=== PATIENT | male | born 1955 | race Caucasian/White ===

== ENCOUNTER 2017-01-03 14:51 | Inpatient (IN) | payer OTHER, MEDICAID ==
[~2017-01-03] VITALS: Ht 193 cm; Wt 81.7 kg
[~2017-01-03 14:51] MED LIST: ALENDRONATE SOD70 M1 PO; ALENDRONATE SOD70 MG PO; AMBIEN10 M1 PO; ASPI-COR81 M1 PO; ASPIR LOW81 MG PO; ATORVASTATIN CA40 M1 PO; BACLOF PO; BACLOFEN20 MG PO; BACTROBAN OINT22 GM PO; CAPOTEN25 MG PO; CAPOTEN50 MG PO; CARDURA1 M1 PO; CARDURA1 MG PO; CEFTRIAXONE IV; CENTRUM 240 ML240 ML PO; CENTRUM1 TAB PO; CIPRO500 MG PO; CLOTRIMAZOLE AN1 CRE T; COLACE100 MG PO; CRANBERRY1 CAP PO; CYCLOBENZAPRINE10 MG PO; Ciprofloxacin500 MG PO; DILTIAZEM HCL240 M1 PO; DITROPAN XL15 MG PO; DITROPAN5 MG PO; DULCOLAX5 MG PO; ENEMEEZ MINI E283 MG R; FIBER0.52 GM PO; FISH OIL 1,0001 EAC1 PO; FLUCONAZOLE100 MG PO; FOSAMAX70 MG PO; HYDR25T; HYDR25T PO; HYDRODIURIL25 MG PO; IRON PO; LOMOTIL 0.025 M1 TA1 PO; LOPRESSOR100 MG PO; LOTRISONE 0.05%1 CRE TP; MACRODANTIN100 M1 PO; MACRODANTIN100 MG PO; METAMUCIL1 PDR PO; METHENAMINE HIPP1 G1 PO; METOPROLOL SUCC25 M2 PO; MIRALAX17 GM/DOSE PO; NATALIZUMAB; NEURONTIN300 MG PO; NITRO TRANS0.4 MG/HR TD; NITRO-DUR1 EAC3 T; NITROFURANTOIN100 MG PO; NITROSTAT0.4 MG TD; PIPERACIL-TA3.375 GM IV; PYRIDIUM200 MG PO; REQUIP0.25 MG PO; REQUIP0.5 MG PO; RITE AID CRANB425 MG PO; ROCEPHIN1 GM IJ; SENOKOT8.6 MG PO; SEPTRA DS 800 M1 TAB PO; TUCKS T; TYSABRI20 MG/ML IV; TYSABRI300 MG/15 IV; UREX1 GM PO; URISED1 TA1 PO; URISPAS100 MG PO; VIBRAMYCIN100 MG PO; VICO75300 PO; VICODIN ES 7.51 EACH PO; VICODIN ES 7501 TA1 PO; VITAMIN D-32000 UNI1 PO; VITAMIN E1000 UNI1 PO; ZOCOR40 MG PO; ZOLOFT50 MG PO; [UNRECOGNIZED DRUG - OTHER] R; [UNRECOGNIZED DRUG - OTHER] TP
[2017-01-03 15:20] VITALS: BP 130/81
[2017-01-03 15:54] LABS: BASO # 0.1 10*3/uL (0.0-0.1); BASO % 0.4 % (0.0-1.0); EOS # 0.3 10*3/uL (0.0-0.4); EOS % 2.2 % (1.0-4.0); HEMATOCRIT 31.2 % (42.0-52.0); HEMOGLOBIN 9.6 g/dl (14.0-18.0); LYMPH # 1.3 10*3/uL (1.3-4.4); LYMPH % 8.9 % (27.0-41.0); MEAN CELL VOLUME 84.6 fl (80.0-94.0); MEAN CORPUSCULAR HGB CONC 30.8 g/dl (33.0-37.0); MEAN PLATELET VOLUME 9.6 fl (9.6-12.3); MONO # 1.3 10*3/uL (0.1-1.0); MONO % 8.7 % (3.0-9.0); NEUT # 11.3 10*3/uL (2.3-7.9); PLATELET COUNT AUTOMATED 351 10*3/uL (130-400); RED BLOOD COUNT 3.69 10*6/uL (4.50-5.90); RED CELL DISTRI WIDTH 17.7 % (0-14.5); WHITE BLOOD COUNT 14.4 10*3/uL (4.8-10.8)
[2017-01-03 16:04] LABS: ACT PARTIAL THROMBO TIME 31.8 SECONDS (20.8-31.5); INTERNATIONAL NORM RATIO 1.2 (2.0-3.5)
[2017-01-03 16:10] LABS: ALBUMIN 2.4 gm/dl (3.1-4.5); ALKALINE PHOSPHATASE 99 U/L (45-117); BUN 31 mg/dl (7-24); CHLORIDE 104 mmol/L (98-107); CREATININE 1.35 mg/dL (0.70-1.30); LIPASE 93 U/L (73-393); POTASSIUM 3.3 mmol/L (3.5-5.1); SGOT/AST 38 IU/L (3-35); SGPT/ALT 51 U/L (12-78); SODIUM 140 mmol/L (136-145); TOTAL PROTEIN 7.2 gm/dL (6.4-8.2)
[2017-01-03 17:08] LABS: BILIRUBIN NEGATIVE (NEGATIVE); CLARITY CLOUDY (CLEAR); COLOR YELLOW (YELLOW); GLUCOSE NEGATIVE (NEGATIVE); KETONE NEGATIVE (NEGATIVE)
[2017-01-03 17:09] LABS: BLOOD 2+ (NEGATIVE)
[2017-01-03 17:10] LABS: LEUKO ESTERASE 2+ (NEGATIVE); NITRITE POSITIVE (NEGATIVE); UROBILINOGEN 0.2 E.U./dl (0.2-1.0)
[2017-01-03 17:13] LABS: WBC TNTC wbc/hpf (0-5)
[2017-01-03] MEDS ORDERED: Lopressor25 MG PO (17:18)
[2017-01-03] MEDS ORDERED: MACROBID100 M1 PO (17:21)
--- NOTE | 2017-01-03 17:24 | NUR ---
REPORT CALLED TO MING CLINTON AT THIS TIME.
[2017-01-03 17:27] VITALS: BP 120/65
--- NOTE | 2017-01-03 17:44 | NUR ---
A 61, admitted to , under the services of FUAD Hinton DO with a diagnosis of UTI, PSEUDOMONAS. Chief complaint is POSITIVE CULTURES. Patient arrived via ambulance from ER. Monitor applied. Initial assessment completed. Vital signs taken and recorded. FUAD HINTON DO notified of admission to the unit. Orders received. See assessment for past medical history, medications and allergies. Patient and/or family oriented to unit. [facility] visitation policy reviewed. Clothing/patient valuable form completed. MING SAMPSON
--- NOTE | 2017-01-03 17:45 | NUR ---
PATIENT TRANSPORTED TO 4TH FLOOR AT THIS TIME. MING RN AT BEDSIDE WITH PATIENT.
[2017-01-03 18:00] VITALS: BP 118/70
--- NOTE | 2017-01-03 18:10 | NUR ---
DR LOPEZ NOTIFIED THAT PT'S MED REC IS UPDATED AND VERIFIED WITH [facility], ALSO NOTIFIED THAT PT HAS WOUND TO HIS COCCYX THAT REQUIRES WOUND ORDERS.
[2017-01-03 20:00] VITALS: BP 121/56
--- NOTE | 2017-01-03 22:29 | NUR ---
C/O GENERALIZED PAIN. RATES PAIN 7/10. MEDICATED WITH NORCO ORDERED AND PER PATIENT REQUEST.
--- NOTE | 2017-01-03 23:20 | NUR ---
PATIENT ASLEEP. NO SIGNS OF PAIN. NORCO EFFECTIVE.
[2017-01-04] VITALS: BP 140/65
--- NOTE | 2017-01-04 02:00 | NUR ---
SLEEPING. RESP EASY AND NONLABORED ON ROOM AIR. NO DISTRESS NOTED. IV INFUSING PER ORDER WITHOUT DIFFICULTY. BED ALARM ON. CALL LIGHT IN REACH. WILL CONTINUE TO MONITOR.
--- NOTE | 2017-01-04 03:04 | NUR ---
MEDICATED WITH PRN NORCO FOR C/O BACK AND ADBOMINAL PAIN. RATES 06/23.
[2017-01-04 06:47] LABS: BASO # 0.1 10*3/uL (0.0-0.1); BASO % 0.5 % (0.0-1.0); EOS # 0.5 10*3/uL (0.0-0.4); LYMPH # 1.1 10*3/uL (1.3-4.4); LYMPH % 9.3 % (27.0-41.0); MEAN CELL VOLUME 85.5 fl (80.0-94.0); MEAN CORPUSCULAR HGB 26.3 pg (27.0-31.0); MEAN CORPUSCULAR HGB CONC 30.8 g/dl (33.0-37.0); MEAN PLATELET VOLUME 9.3 fl (9.6-12.3); MONO # 1.3 10*3/uL (0.1-1.0); MONO % 10.9 % (3.0-9.0); NEUT # 8.5 10*3/uL (2.3-7.9); NEUT % 74.1 % (47.0-73.0); PLATELET COUNT AUTOMATED 311 10*3/uL (130-400); RED BLOOD COUNT 3.04 10*6/uL (4.50-5.90); RED CELL DISTRI WIDTH 17.4 % (0-14.5); WHITE BLOOD COUNT 11.5 10*3/uL (4.8-10.8)
[2017-01-04 07:03] LABS: ALBUMIN 2.1 gm/dl (3.1-4.5); ALKALINE PHOSPHATASE 87 U/L (45-117); BUN 27 mg/dl (7-24); CHLORIDE 110 mmol/L (98-107); CHOLESTEROL 104 mg/dL (<200); CREATININE 1.17 mg/dL (0.70-1.30); HDL CHOLESTEROL 10 mg/dl (40-60); LDL CHOLESTEROL 56 mg/dL (9-159); POTASSIUM 3.4 mmol/L (3.5-5.1); SGOT/AST 39 IU/L (3-35); SGPT/ALT 56 U/L (12-78); SODIUM 144 mmol/L (136-145); TOTAL PROTEIN 6.2 gm/dL (6.4-8.2); TRIGLYCERIDES 189 mg/dl (<150); VLDL CHOLESTEROL 38 mg/dL (6-40)
[2017-01-04 07:10] LABS: THYROID STIM HORMONE (HS) 0.394 uIU/ml (0.358-4.75)
[2017-01-04 08:00] VITALS: BP 104/72
--- NOTE | 2017-01-04 09:00 | NUR ---
Coordinator Of Health Services in to talk to patient. Patient states lives at home with caregiver. There are no steps in the home. Physician: robina syed [facility] Patient's level of ADLs: BEDFAST Patient has working utilities: all working DME: hospital bed, wheelchair, bing lift Follow-up physician's appointment after d/c: will be made by hospitalist nurse director upon discharge Does patient want to access PORTAL?: no Discharge plan discussed with patient, patient lives at home with caregiver, caregiver was present, she states she is a PHLEBOTOMY INSTRUCTOR and she stays with patient 24 hours a day, patient stated he has [facility] and would like them to continue when patient is discharged, associate media planner will notify [facility] when patient is medically stable for discharge. DECLAN KIRK
[2017-01-04 09:31] LABS: VITAMIN D, 25-HYDROXY 16.1 ng/mL (30-100)
[2017-01-04 12:00] VITALS: BP 110/52
--- NOTE | 2017-01-04 12:07 | NUR ---
DR. LION NOTIFIED OF CONSULT.
--- NOTE | 2017-01-04 13:29 | NUR ---
HALINA PALACIO [id number] Please refer to the physician's history and physical for past medical history, comorbid conditions, and allergies. Diagnosis: UTI PSEUDOMONAS INFECTION Luis A Score: 10,HIGH RISK WOUND DESCRIPTIONS: Location of the wound: coccyx Thickness: Full Size: 2.5cm x 3cm x <0.1cm Tunneling: none Undermining: none Sinus Tract: none Presence of Exudate: Serousanguinous Amount: Light Color: Brown, yellow, red Odor: None Periwound Skin Appearance: Normal Wound edges: approximated Pain (associated with wound): patient denied at time of assessment How does patient state this happened? patient states this area comes and goes and can be bothersome at times Patient states side of both feet were "sore". Assessed bilateral feet and no redness noted. Patient states he uses boots at home. Surface the patient is resting on: Position Pro SKIN PREVENTION RECOMMENDATION: 1. Pressure redistribution support surface as appropriate 2. Elevate heels 3. Remove boots/TEDS every shift and reapply 4. Head of bed 30 degrees as tolerated 5. Assess nutrition and hydration 6. Manage moisture 7. Avoid the use of containment devices while in bed 8. Use absorptive products on surfaces limit layers of linens on bed 9. Turn and reposition every 1-2 hours in bed and every 1 hour in chair as tolerated 10. Weight shifts every 15 minutes while up in chair 11. Offloading with pillows or device to keep heels elevated off bed 12. Monitor skin at least every shift 13. Inspect under medical devices twice a day WOUND TREATMENT RECOMMENDATIONS: Consult Dr. Hood for possible debridement for coccyx Heel raiser pro boots while in bed. Wheelchair cushion when out of bed. Cleanse coccyx wound with NS. Apply sureprep to periwound allow to dry and apply therahoney and cover with optifoam gentle.
[2017-01-04 16:00] VITALS: BP 103/53
--- NOTE | 2017-01-04 19:45 | NUR ---
DR. CARDENAS IN TO SEE PATIENT. STATED THAT THE PATIENT WILL BE AN ADD ON FOR A DEBRIDEMENT TOMORROW IN SURGERY
[2017-01-04 20:00] VITALS: BP 142/66
[2017-01-05] VITALS (8 sets, daily range): BP systolic 100–143; BP diastolic 61–75
--- NOTE | 2017-01-05 07:57 | NUR ---
PT OFF FLOOR FOR DEBRIDEMENT.
[2017-01-05 08:00] LABS: BASO # 0.1 10*3/uL (0.0-0.1); BASO % 0.7 % (0.0-1.0); EOS # 0.5 10*3/uL (0.0-0.4); EOS % 4.9 % (1.0-4.0); HEMATOCRIT 27.5 % (42.0-52.0); HEMOGLOBIN 8.6 g/dl (14.0-18.0); LYMPH # 1.2 10*3/uL (1.3-4.4); MEAN CELL VOLUME 85.7 fl (80.0-94.0); MEAN CORPUSCULAR HGB 26.8 pg (27.0-31.0); MEAN CORPUSCULAR HGB CONC 31.3 g/dl (33.0-37.0); MEAN PLATELET VOLUME 9.7 fl (9.6-12.3); MONO # 1.2 10*3/uL (0.1-1.0); MONO % 10.5 % (3.0-9.0); NEUT # 7.8 10*3/uL (2.3-7.9); NEUT % 71.4 % (47.0-73.0); PLATELET COUNT AUTOMATED 374 10*3/uL (130-400); RED BLOOD COUNT 3.21 10*6/uL (4.50-5.90); RED CELL DISTRI WIDTH 17.7 % (0-14.5)
[2017-01-05 08:24] LABS: CHLORIDE 111 mmol/L (98-107); POTASSIUM 3.6 mmol/L (3.5-5.1); SODIUM 143 mmol/L (136-145)
[2017-01-05 08:30] LABS: BUN 20 mg/dl (7-24); CREATININE 1.07 mg/dL (0.70-1.30)
--- NOTE | 2017-01-05 09:00 | NUR ---
case management visits with patient, patient will be going home when able and wants [facility] to continue, tool and production planner will notify [facility] when patient is medically stable for discharge
--- NOTE | 2017-01-05 09:08 | NUR ---
C/O "MY LEGS REALLY HURT," AND REQUESTS PAIN MEDICATION. MEDICATED WITH NORCO PER PRN ORDER WITH SIP OF WATER
--- NOTE | 2017-01-05 10:55 | NUR ---
Recieved order to resume home health to [place] visiting nurses. Faxed order and clincals to resume once patient is discharged.
--- NOTE | 2017-01-05 11:40 | NUR ---
[facility] nurses stated this patient cannot go home on IV ATB due to a person that lives with him having "behaviors". If patient is to require IV ATB he would have to be sent to a facility.
--- NOTE | 2017-01-05 17:41 | NUR ---
DR MARLOW ASKED THIS NURSE TO CALL DR LION FOR DISCHARGE WOUND CARE ORDERS. DR LION STATES HE WILL ADD ORDERS TO HIS DICTATION TONIGHT. AND WILL ALSO ROUND ON THE PT IN THE MORNING. DR LOPEZ NOTIFIED.
--- NOTE | 2017-01-05 20:00 | NUR ---
MEDICATED WITH NORCO FOR C/O BILATERAL LEG PAIN & BUTTOCK PAIN.
[2017-01-06] VITALS: BP 111/68
[2017-01-06 06:00] LABS: BASO # 0.1 10*3/uL (0.0-0.1); BASO % 0.5 % (0.0-1.0); EOS # 0.5 10*3/uL (0.0-0.4); EOS % 4.4 % (1.0-4.0); HEMATOCRIT 26.2 % (42.0-52.0); HEMOGLOBIN 7.9 g/dl (14.0-18.0); LYMPH # 1.5 10*3/uL (1.3-4.4); LYMPH % 11.9 % (27.0-41.0); MEAN CELL VOLUME 85.3 fl (80.0-94.0); MEAN CORPUSCULAR HGB 25.7 pg (27.0-31.0); MEAN CORPUSCULAR HGB CONC 30.2 g/dl (33.0-37.0); MEAN PLATELET VOLUME 9.7 fl (9.6-12.3); MONO % 8.4 % (3.0-9.0); NEUT # 8.9 10*3/uL (2.3-7.9); NEUT % 73.1 % (47.0-73.0); PLATELET COUNT AUTOMATED 398 10*3/uL (130-400); RED BLOOD COUNT 3.07 10*6/uL (4.50-5.90); RED CELL DISTRI WIDTH 17.7 % (0-14.5); WHITE BLOOD COUNT 12.2 10*3/uL (4.8-10.8)
[2017-01-06 06:18] LABS: BUN 18 mg/dl (7-24); CHLORIDE 113 mmol/L (98-107); CREATININE 1.05 mg/dL (0.70-1.30); POTASSIUM 3.7 mmol/L (3.5-5.1); SODIUM 146 mmol/L (136-145)
[2017-01-06 08:00] VITALS: BP 139/95
[2017-01-06] MEDS ORDERED: ZOSYN 3.373.375 GM/5 IV (10:48)
[2017-01-06] MEDS ORDERED: DOXYCYCLINE100 M3 PO (10:51)
[2017-01-06 16:00] VITALS: BP 125/70
[2017-01-06 20:00] VITALS: BP 130/76
--- NOTE | 2017-01-06 20:10 | NUR ---
PT. IS CURRENTLY RESTING IN BED WATCHING TV AT THIS TIME. HOB IS ELEVATED, WITH CALL LIGHT IN REACH, BED LOW AND WHEELS LOCKED. PT. HAS C/O BACK PAIN, SEE MAR FOR TX. SEE SHIFT ASSESSMENT.
--- NOTE | 2017-01-06 20:46 | NUR ---
MEDICATED WITH PRN NORCO FOR BACK AND LEG PAIN, WILL MONITOR EFFECT.
--- NOTE | 2017-01-06 23:15 | NUR ---
PRN NORCO SEEMS EFFECTIVE, PT IS SLEEPING COMFORTABLY IN BED AT THIS TIME. RESPERS ARE EASY AND REGULAR WITH CALL LIGHT IN REACH.
[2017-01-07] VITALS: BP 133/87
--- NOTE | 2017-01-07 03:54 | NUR ---
PRN NORCO GIVEN PER PT. REQUEST FOR LEG AND BACK PAIN, WILL MONITOR EFFECT
[2017-01-07 07:20] LABS: BASO # 0.1 10*3/uL (0.0-0.1); BASO % 0.4 % (0.0-1.0); EOS # 0.5 10*3/uL (0.0-0.4); EOS % 3.2 % (1.0-4.0); HEMATOCRIT 25.8 % (42.0-52.0); HEMOGLOBIN 7.7 g/dl (14.0-18.0); LYMPH # 1.4 10*3/uL (1.3-4.4); LYMPH % 9.6 % (27.0-41.0); MEAN CELL VOLUME 86.3 fl (80.0-94.0); MEAN CORPUSCULAR HGB 25.8 pg (27.0-31.0); MEAN CORPUSCULAR HGB CONC 29.8 g/dl (33.0-37.0); MEAN PLATELET VOLUME 9.4 fl (9.6-12.3); MONO # 1.2 10*3/uL (0.1-1.0); MONO % 8.2 % (3.0-9.0); NEUT # 11.4 10*3/uL (2.3-7.9); NEUT % 76.6 % (47.0-73.0); PLATELET COUNT AUTOMATED 388 10*3/uL (130-400); RED BLOOD COUNT 2.99 10*6/uL (4.50-5.90); RED CELL DISTRI WIDTH 17.8 % (0-14.5); WHITE BLOOD COUNT 14.8 10*3/uL (4.8-10.8)
[2017-01-07 07:35] LABS: BUN 16 mg/dl (7-24); CHLORIDE 110 mmol/L (98-107); CREATININE 0.93 mg/dL (0.70-1.30); POTASSIUM 3.7 mmol/L (3.5-5.1); SODIUM 142 mmol/L (136-145)
--- NOTE | 2017-01-07 07:40 | NUR ---
NORCO GIVEN FOR GENERALIZED ACHES FROM MS & COCCYX WOUND. PATIENT EXPLAINED THE NEED TO TURN & KEEP WEIGHT OFF HIS BUTT HOWEVER HE REFUSES ANYTHING BUT MINOR SHIFTS. ZOFRAN GIVEN FOR NAUSEA & NO BM BUT PATIENT REFUSED DULCOLAX.
[2017-01-07 08:00] VITALS: BP 143/75
--- NOTE | 2017-01-07 08:25 | NUR ---
NO CHANGE TO MED REC
--- NOTE | 2017-01-07 09:00 | NUR ---
VIKA EFFECTIVE PER PT 02/23 NOW
[2017-01-07 12:00] VITALS: BP 141/84
--- NOTE | 2017-01-07 14:13 | NUR ---
PRN NORCO & ROUTINE REQUIP GIVEN FOR GEN PAIN
--- NOTE | 2017-01-07 15:30 | NUR ---
TARIQCO EFFECTIVE 03/26.
[2017-01-07 16:00] VITALS: BP 111/60
--- NOTE | 2017-01-07 17:51 | NUR ---
VIKA FOR GEN ACHES & PAINS.
--- NOTE | 2017-01-07 19:40 | NUR ---
PT. IS CURRENTLY RESTING IN BED WATCHING TV. PT. DOES NOT VERBALIZE ANY COMPLAINTS OR CONCERNS AT THIS TIME, AND NO DISTRESS IS NOTED. CALL LIGHT IS WITHIN REACH, HOB IS ELEVATED, WHEELS ARE LOCKED AND BED IS IN LOWEST POSITION. SEE SHIFT ASSESSMENT.
[2017-01-07 20:00] VITALS: BP 122/62
--- NOTE | 2017-01-07 21:45 | NUR ---
PRN NORCO GIVEN PER PT. REQUEST FOR BACK PAIN, CALL LIGHT IS WITHIN REACH WILL MONITOR EFFECT.
--- NOTE | 2017-01-07 22:30 | NUR ---
PRN NORCO EFFECTIVE PER PT. WHEN ASKED PT. DOES NOT VERBALIZE ANY PAIN AND NO DISTRESS IS NOTED. CALL LIGHT IS WITHIN REACH.
--- NOTE | 2017-01-07 23:15 | NUR ---
DR. BAPTISTE CONTACTED IN REGARDS TO GETTING AN ORDER FOR TUMS, SEE NEW ORDERS.
[2017-01-08] VITALS: BP 118/60; BP 122/62
--- NOTE | 2017-01-08 05:52 | NUR ---
PRN NORCO GIVEN PER PT. REQUEST FOR LOWER BACK AND HEADACHE. CALL LIGHT IS WITHIN REACH WILL MONITOR EFFECT.
[2017-01-08 06:03] LABS: BASO # 0.1 10*3/uL (0.0-0.1); BASO % 0.4 % (0.0-1.0); EOS # 0.5 10*3/uL (0.0-0.4); EOS % 2.9 % (1.0-4.0); HEMATOCRIT 25.7 % (42.0-52.0); HEMOGLOBIN 7.7 g/dl (14.0-18.0); LYMPH # 1.4 10*3/uL (1.3-4.4); LYMPH % 7.9 % (27.0-41.0); MEAN CELL VOLUME 86.2 fl (80.0-94.0); MEAN CORPUSCULAR HGB 25.8 pg (27.0-31.0); MEAN PLATELET VOLUME 9.3 fl (9.6-12.3); MONO # 1.3 10*3/uL (0.1-1.0); MONO % 7.4 % (3.0-9.0); NEUT # 14.4 10*3/uL (2.3-7.9); NEUT % 79.8 % (47.0-73.0); NUCLEATED RED BLOOD CELL 0.1 % (0.0-0.0); PLATELET COUNT AUTOMATED 398 10*3/uL (130-400); RED BLOOD COUNT 2.98 10*6/uL (4.50-5.90); WHITE BLOOD COUNT 18.1 10*3/uL (4.8-10.8)
--- NOTE | 2017-01-08 06:30 | NUR ---
PRN NORCO SEEMS EFFECTIVE, PT IS SLEEPING COMFORTABLY AT THIS TIME WITH CALL LIGHT IN REACH.
[2017-01-08 08:00] VITALS: BP 145/71
[2017-01-08 12:00] VITALS: BP 146/70
--- NOTE | 2017-01-08 13:30 | NUR ---
NORCO GIVEN FOR C/O GENERALIZED DISCOMFORT. WILL MONITOR.
--- NOTE | 2017-01-08 14:30 | NUR ---
VIKA EFFECTIVE PER PT.
[2017-01-08 16:00] VITALS: BP 116/60
[2017-01-08 20:00] VITALS: BP 114/62
--- NOTE | 2017-01-08 20:42 | NUR ---
PATIENT RESTING IN BED. PATIENT IS NON-AMBULATORY. PATIENT HAS CHRONIC PAIN FROM MS THAT THE PATIENT IS CURRENTLY RATING A 6/10. PATIENT DENIES ANY SOB, DIZZINESS, OR N/V/D. PATIENT IS NON-MONITORED. PATIENT HAS EDEMA IN HIS LOWER EXTREMITIES. PATIENT VERBALIZES THAT HE REFUSES TO GO TO A SNF. DOCTORS ARE ALREADY AWARE. CALL LIGHT IS WITHIN REACH. SEE ASSESSMENT.
--- NOTE | 2017-01-08 21:05 | NUR ---
PATIENT GIVEN NORCO PER PATIENT REQUEST FOR CHRONIC BODY PAIN FROM MS RATED A 7/10 ON THE PAIN SCALE AND LOCATED MOSTLY IN THEIR BACK, BUT RADIATES DOWN THEIR LEGS. WILL CONTINUE TO MONITOR AND REASSESS.
--- NOTE | 2017-01-08 22:05 | NUR ---
PAIN MEDICATION HAS BEEN EFFECTIVE. PATIENT IS RESTING SOUNDLY IN BED AND DID NO WAKE UPON ASSESSMENT. WILL CONTINUE TO MONITOR .
[2017-01-09] VITALS: BP 130/71
[2017-01-09 06:02] LABS: HEMATOCRIT 26.8 % (42.0-52.0); HEMOGLOBIN 8.1 g/dl (14.0-18.0); MEAN CELL VOLUME 86.5 fl (80.0-94.0); MEAN CORPUSCULAR HGB 26.1 pg (27.0-31.0); MEAN CORPUSCULAR HGB CONC 30.2 g/dl (33.0-37.0); MEAN PLATELET VOLUME 9.4 fl (9.6-12.3); NUCLEATED RED BLOOD CELL 0.2 % (0.0-0.0); PLATELET COUNT AUTOMATED 431 10*3/uL (130-400); WHITE BLOOD COUNT 14.4 10*3/uL (4.8-10.8)
[2017-01-09 06:05] LABS: BUN 14 mg/dl (7-24); CHLORIDE 111 mmol/L (98-107); CREATININE 1.05 mg/dL (0.70-1.30); POTASSIUM 3.7 mmol/L (3.5-5.1); SODIUM 144 mmol/L (136-145)
[2017-01-09 06:43] LABS: BASOPHILS 2 % (0-1); PLATELET SUFFICIENCY HIGH (NORMAL); TOTAL CELLS COUNTED 100 #CELLS
--- NOTE | 2017-01-09 07:38 | NUR ---
NORCO GIVEN FOR C/O GENERALIZED PAIN OF 6/10. WILL CONT TO MONITOR. CALL LIGHT IN REACH.
[2017-01-09 08:00] VITALS: BP 137/71
--- NOTE | 2017-01-09 08:38 | NUR ---
NORCO EFF AT THIS TIME. WILL CONT TO MONITOR.
--- NOTE | 2017-01-09 11:44 | NUR ---
DISCHARGED AT THIS TIME. NEEDLE REMOVED FROM RIGHT CHEST MEDIPORT AND GAUZE APPLIED. VERBALIZED UNDERSTANDING OF DISCHARGE. [facility] TRANSPORTED HOME.
== END 2017-01-09 11:44 | disposition home health service (06) | DRG 981 ==
LOC: ED 14:51 → 4E 15:50 → EDHOLD 15:50 → 4E 16:21
PROVIDERS: Emergency Medicine; Internal Medicine; Student in an Organized Health Care Education/Training Program; ADMIT Internal Medicine
PROC: 0QB13ZZ Excision of Sacrum, Percutaneous Approach (ICD-10-PCS; principal; 2017-01-06)
DX: T83.511A Infection and inflammatory reaction due to indwelling urethral catheter, initial encounter (principal); A41.9 Sepsis, unspecified organism; N17.0 Acute kidney failure with tubular necrosis; R65.20 Severe sepsis without septic shock; E43 Unspecified severe protein-calorie malnutrition; L89.159 Pressure ulcer of sacral region, unspecified stage; N39.0 Urinary tract infection, site not specified; B96.5 Pseudomonas (aeruginosa) (mallei) (pseudomallei) as the cause of diseases classified elsewhere; D64.9 Anemia, unspecified; D72.810 Lymphocytopenia; E87.6 Hypokalemia; R73.9 Hyperglycemia, unspecified; I25.10 Atherosclerotic heart disease of native coronary artery without angina pectoris; G25.81 Restless legs syndrome; E55.9 Vitamin D deficiency, unspecified; M81.0 Age-related osteoporosis without current pathological fracture; E78.5 Hyperlipidemia, unspecified; G35 Multiple sclerosis; I10 Essential (primary) hypertension; Z93.59 Other cystostomy status; Z88.2 Allergy status to sulfonamides; Z91.041 Radiographic dye allergy status; Z88.8 Allergy status to other drugs, medicaments and biological substances; Z91.040 Latex allergy status; Z82.49 Family history of ischemic heart disease and other diseases of the circulatory system; Z81.8 Family history of other mental and behavioral disorders; Z68.21 Body mass index [BMI] 21.0-21.9, adult

== ENCOUNTER 2017-02-01 18:07 | Inpatient (IN) | payer OTHER, MEDICAID ==
[~2017-02-01] VITALS: Ht 193 cm; Wt 79.6 kg
--- NOTE | ~2017-02-01 | PR ---
[place], [place] PROGRESS NOTE NAME: HALINA PALACIO [facility] #: [id number] UNIT #: [id number] ROOM: 407 DOCTOR: SMOOTH KLEIN,MAY BIRTHDATE: [birth year] DOS: 02/08/2017 SUBJECTIVE: The patient is being followed for sacral decubitus infection with osteomyelitis. Operative cultures grew Proteus. Urine grew Proteus and Pseudomonas. Pathology showed acute osteomyelitis. His Zosyn was changed to Merrem 2 days ago due to rising creatinine as well as elevated eosinophils on his peripheral smear. He is alert and oriented, tolerating the antibiotics. Denies fevers, chills, nausea, vomiting or diarrhea. No rash or itch. No cough or shortness of breath. He does have some discomfort of his wound. He is status post a wound VAC change. Urine for eosinophils was ordered and is pending. His creatinine appears to have leveled out and eosinophils are coming down. He had no blood work done today, but WBCs yesterday 12.5, platelets 357. Bun 20, creatinine 1.57, sodium 144. He also has mild degree of volume contraction. He states good appetite. CURRENT MEDICATIONS: Include Merrem, Lovenox, Lopressor, vitamin E, vitamin D, Senokot, Metamucil, multivitamin, Hiprex, fish oil, Cardizem, aspirin, Zoloft, Requip, Macrobid, Zestril, Neurontin, Urispas, Cardura, nitroglycerin, [place], morphine, nystatin. PHYSICAL EXAMINATION: VITAL SIGNS: Temperature 97.8, pulse 71, respirations 18, BP 120/57. GENERAL: A 61-year-old male, in no acute distress. HEAD. EYES. EARS, NOSE AND THROAT: Normocephalic. No thrush. Somewhat underweight. LUNGS: Clear to auscultation bilaterally. Respirations even and unlabored. HEART: Regular rhythm. No murmur appreciated. Right chest MediPort is accessed. ABDOMEN: Soft, nondistended. EXTREMITIES: +1 edema bilateral of lower extremities, sacral decubitus with VAC in place. SKIN: Warm, pale, dry, free of rashes. ASSESSMENT: Infected sacral decubitus with osteomyelitis. PLAN: We will continue the Merrem, follow up on the urine for eosinophils. Arrangements are trying to be made to have him discharged to a facility that can accommodate his antibiotics. He will need 6 weeks of IV antibiotics. Case discussed with Dr. Rasta Jones. I agree with the above plans as described. We will follow the patient up clinically and adjust accordingly. MAY ERNIE REBOLLAR [place], [place] PROGRESS NOTE NAME: HALINA PALACIO UNIT #: [id number] ROOM: 407 DOCTOR: SMOOTH KLEIN BIRTHDATE: [birth year] RASTA JONES MD CM:PNTRANS [id number] MAY SMOOTH KLEIN 02/08/17 1945 interface
--- NOTE | ~2017-02-01 | PR ---
[place], [place] PROGRESS NOTE NAME: HALINA PALACIO [facility] #: [id number] UNIT #: [id number] ROOM: 407 DOCTOR: SMOOTH KLEINMAY BIRTHDATE: [birth year] DOS: 02/06/2017 SUBJECTIVE: The patient is a 61-year-old male being followed for an infected sacral decubitus with osteomyelitis as proven by his pathology. Operative cultures grew Proteus. His urine culture grew Proteus and Pseudomonas. He was already on Zosyn at the time of surgery. He remains on Zosyn. His admitting blood cultures were negative. He is alert and oriented. Denies fever, chills, nausea, vomiting or diarrhea. No rash or itch. No cough or shortness of breath. No fevers or shaking chills. On reviewing his cultures, no cultures were done with debridement. The pathology is from the and no cultures were done with that surgery. LABORATORY DATA: Show WBC is 12.5, platelets 388. BUN 19, creatinine 1.54. On his blood work his peripheral smear has elevated eosinophils. CURRENT MEDICATIONS: Include Lovenox. He is status post one dose of Lasix, Lopressor, vitamin E, vitamin D, Senokot, Metamucil, multivitamin, Hiprex, fish oil, Cardizem, aspirin, Zoloft, Requip, Macrobid, Zestril, Neurontin, Urispas, Cardura, nitroglycerin, [place], morphine, Zosyn, [place]ox. PHYSICAL EXAMINATION: VITAL SIGNS: Show temp 98.0, pulse 82, respirations 18, BP 116/96. GENERAL: A 61-year-old male, in no acute distress. HEAD, EYES, EARS, NOSE AND THROAT: Normocephalic. No thrush. LUNGS: Clear to auscultation bilaterally. Respirations even and unlabored. HEART: Regular rhythm. No murmur appreciated. ABDOMEN: Soft, nondistended. Catheter with clear yellow urine. EXTREMITIES: With paralysis of lower extremities. He has a right chest MediPort, which is accessed. SKIN: Warm, dry. He has VAC to his sacral decubitus. ASSESSMENT: Infected sacral decubitus with osteomyelitis, now with acute kidney injury based on his blood work, may be interstitial nephritis given the eosinophilia, but his creatinine has gone from 0.66 to 1.54. PLAN: We will check urine for eosinophils, stop the Zosyn and start Merrem. I think it prudent to cover the Pseudomonas that was also cultured from the urine. Check BMP in a.m. Case discussed with Dr. Rasta Jones. MAY ERNIE REBOLLAR [place], [place] PROGRESS NOTE NAME: HALINA PALACIO UNIT #: [id number] ROOM: [facility] DOCTOR: SMOOTH KLEIN BIRTHDATE: [birth year] RASTA JONES MD CM:[id number] [id number] [phone] SMOOTH KLEIN 02/06/171951 interface
--- NOTE | ~2017-02-01 | PR ---
[place], [place] PROGRESS NOTE [id number] #: [id number] ROOM: 407 DOCTOR: SMOOTH KLEIN,MAY BIRTHDATE: [birth year] DOS: SUBJECTIVE: The patient is a 61-year-old male who is being followed for an infected sacral decubitus. Pathology is back from his debridement on the and is demonstrating acute osteomyelitis. Cultures thus far are growing Proteus. His urine culture had Proteus and Pseudomonas. His blood cultures are negative. He is currently on Zosyn. He is alert and oriented. Denies any fevers, chills, nausea, vomiting or diarrhea. No rash or itch. No cough or shortness of breath. No fevers or shaking chills. CURRENT MEDICATIONS: Include Lovenox, Lopressor, vitamin E, vitamin D, Senokot, Metamucil, Theragran, Hiprex, fish oil, Cardizem, aspirin, Zoloft, Requip, Macrobid, Zestril, Neurontin, Urispas, Cardura, nitroglycerin, [place], DuoNeb, Zosyn, nystatin, Restoril. LABORATORY DATA: WBCs 12.4, platelets 355. BUN 16, creatinine 1.33. Cultures as above. OBJECTIVE: VITAL SIGNS: Show temperature 97.6, pulse 76, respirations 18, BP 102/62. GENERAL: A 61-year-old male, in no acute distress. HEAD, EYES, EARS, NOSE AND THROAT: Normocephalic. No thrush. LUNGS: Clear to auscultation bilaterally. Respirations even and unlabored. HEART: Regular rhythm. No murmur appreciated. ABDOMEN: Soft, nondistended. EXTREMITIES: No edema. Paraplegic. SKIN: Sacral decubitus with VAC in place. Right chest MediPort is accessed. ASSESSMENT: Infected sacral decubitus stage 4 with osteomyelitis as well as possible urinary tract infection. PLAN: To continue the Zosyn. He is going to need at least 4-6 weeks of IV antibiotics. I did discuss with the patient pressure relief. He needs to be turned every 2 hours as well as adequate protein intake to aid with wound healing and educated him regarding dietary sources of protein. Case discussed with Dr. Rasta Jones. ADDENDUM I agree with the above plans as described. We will follow the patient up clinically and adjust accordingly. CRISTAL REBOLLAR CNP [place], [place] PROGRESS NOTE NAME: HALINA PALACIO UNIT #: [id number] ROOM: 407 DOCTOR: SMOOTH KLEINMAY BIRTHDATE: [birth year] RASTA JONES MD CM:PNTRANS [id number] MAY SMOOTH KLEIN 02/06/17 0150 interface
--- NOTE | ~2017-02-01 | PR ---
[place], [place] PROGRESS NOTE [id number] UNIT #: [id number] ROOM: 407 DOCTOR: SMOOTH KLEIN,MAY BIRTHDATE: [birth year] DOS: SUBJECTIVE: The patient is a 61-year-old male being followed for an infected sacral decubitus, reportedly stage III. He underwent surgical debridement by Dr. Hood yesterday, the operative note is not yet available. Cultures from his wounds have grown gram-negative bacilli. There are also gram-positive cocci in pairs on his Gram stain, but did not grow out. Blood cultures are negative. Urine cultures are with pseudomonas and Proteus. The patient is afebrile. He is tolerating the antibiotics. Denies fevers, chills, nausea, vomiting or diarrhea. No rash or itch. No cough or shortness of breath. LABORATORY DATA: Cultures as reviewed above. WBC is 10.5, platelets 321, BUN 11, creatinine 0.8. LFTs are within normal limits. CURRENT MEDICATIONS: Include Lovenox, Lopressor, vancomycin, vitamin E, vitamin D, Senokot, Metamucil, Theragran, Hiprex, fish oil, Cardizem, aspirin, Zoloft, Requip, Macrobid, Zestril, Neurontin, Urispas, Cardura, nitroglycerin, [place], DuoNebs, Zosyn, nystatin, Restoril, Zofran, milk of mag, Dulcolax. PHYSICAL EXAMINATION: VITAL SIGNS: Show temperature 97.6, pulse 82, respirations 18, BP 102/56. GENERAL: A 61-year-old male in no acute distress. HEAD, EYES, EARS, NOSE AND THROAT: Normocephalic, no thrush. LUNGS: Clear to auscultation bilaterally. Respirations even and unlabored. HEART: Regular rhythm. No murmur appreciated. ABDOMEN: Soft, nondistended, nontender. Baclofen pump noted. EXTREMITIES: Paraplegia. SKIN: Warm, dry, free of rashes. Has VAC to sacral decubitus. Right chest MediPort is accessed. ASSESSMENT: Infected sacral decubitus, status post surgical debridement yesterday. PLAN: At this point, none of the urinary or wound cultures have grown out any gram-positive cocci. We will stop the vancomycin. Continue the Zosyn. Follow up for any path or cultures from his debridement yesterday. Case discussed with Dr. Rasta Jones. Length of antibiotics and IV versus p.o. will be determined based upon pathology and culture from debridement as well as more details regarding depth and extent of debridement. I agree with the above plans as described. We will follow the patient up clinically and adjust accordingly. CRISTAL REBOLLAR CNP [place], [place] PROGRESS NOTE NAME: HALINA PALACIO UNIT #: [id number] ROOM: 407 DOCTOR: SMOOTH KLEIN BIRTHDATE: [birth year] RASTA JONES MD CM:PNTRANS [id number] MAY SMOOTH KLEIN 02/05/17 1005 interface
[~2017-02-01 18:07] MED LIST changes: +DOXYCYCLINE100 M3 PO; +Lopressor25 MG PO; +MACROBID100 M1 PO; +ZOSYN 3.373.375 GM/5 IV
[2017-02-01 18:24] VITALS: BP 136/82
[2017-02-01 19:37] LABS: BILIRUBIN NEGATIVE (NEGATIVE); BLOOD 3+ (NEGATIVE); CLARITY CLOUDY (CLEAR); COLOR YELLOW (YELLOW); GLUCOSE NEGATIVE (NEGATIVE); KETONE 2+ (NEGATIVE); LEUKO ESTERASE 3+ (NEGATIVE); NITRITE POSITIVE (NEGATIVE); UROBILINOGEN 0.2 E.U./dl (0.2-1.0)
[2017-02-01 19:44] VITALS: BP 149/76
[2017-02-01 19:45] LABS: WBC TNTC wbc/hpf (0-5)
[2017-02-01 19:52] LABS: BASO # 0.1 10*3/uL (0.0-0.1); BASO % 0.7 % (0.0-1.0); EOS # 0.6 10*3/uL (0.0-0.4); EOS % 4.2 % (1.0-4.0); HEMOGLOBIN 7.9 g/dl (14.0-18.0); LYMPH # 1.9 10*3/uL (1.3-4.4); LYMPH % 13.6 % (27.0-41.0); MEAN CELL VOLUME 83.1 fl (80.0-94.0); MEAN CORPUSCULAR HGB 25.2 pg (27.0-31.0); MEAN CORPUSCULAR HGB CONC 30.4 g/dl (33.0-37.0); MEAN PLATELET VOLUME 9.2 fl (9.6-12.3); MONO # 1.2 10*3/uL (0.1-1.0); MONO % 8.7 % (3.0-9.0); NEUT # 9.9 10*3/uL (2.3-7.9); NEUT % 72.2 % (47.0-73.0); NUCLEATED RED BLOOD CELL 0.2 % (0.0-0.0); PLATELET COUNT AUTOMATED 412 10*3/uL (130-400); RED BLOOD COUNT 3.13 10*6/uL (4.50-5.90); RED CELL DISTRI WIDTH 17.6 % (0-14.5); WHITE BLOOD COUNT 13.7 10*3/uL (4.8-10.8)
[2017-02-01 20:06] LABS: ALBUMIN 2.5 gm/dl (3.1-4.5); ALKALINE PHOSPHATASE 77 U/L (45-117); BUN 14 mg/dl (7-24); CHLORIDE 103 mmol/L (98-107); CREATININE 0.57 mg/dL (0.70-1.30); POTASSIUM 3.2 mmol/L (3.5-5.1); SGOT/AST 9 IU/L (3-35); SGPT/ALT 14 U/L (12-78); SODIUM 140 mmol/L (136-145); TOTAL PROTEIN 6.9 gm/dL (6.4-8.2)
[2017-02-01 20:19] VITALS: BP 155/67
[2017-02-01 20:50] VITALS: BP 157/66
[2017-02-02] VITALS: BP 135/73
[2017-02-02 07:19] LABS: BASO # 0.1 10*3/uL (0.0-0.1); BASO % 0.8 % (0.0-1.0); EOS # 0.5 10*3/uL (0.0-0.4); EOS % 3.8 % (1.0-4.0); HEMATOCRIT 26.1 % (42.0-52.0); HEMOGLOBIN 7.9 g/dl (14.0-18.0); LYMPH # 1.5 10*3/uL (1.3-4.4); LYMPH % 12.7 % (27.0-41.0); MEAN CELL VOLUME 84.7 fl (80.0-94.0); MEAN CORPUSCULAR HGB 25.6 pg (27.0-31.0); MEAN CORPUSCULAR HGB CONC 30.3 g/dl (33.0-37.0); MEAN PLATELET VOLUME 9.3 fl (9.6-12.3); MONO # 1.3 10*3/uL (0.1-1.0); MONO % 10.6 % (3.0-9.0); NEUT # 8.4 10*3/uL (2.3-7.9); NEUT % 71.3 % (47.0-73.0); NUCLEATED RED BLOOD CELL 0.3 % (0.0-0.0); PLATELET COUNT AUTOMATED 370 10*3/uL (130-400); RED BLOOD COUNT 3.08 10*6/uL (4.50-5.90); RED CELL DISTRI WIDTH 17.7 % (0-14.5); WHITE BLOOD COUNT 11.8 10*3/uL (4.8-10.8)
[2017-02-02 07:47] LABS: CHLORIDE 106 mmol/L (98-107); POTASSIUM 3.2 mmol/L (3.5-5.1); SODIUM 140 mmol/L (136-145)
[2017-02-02 07:52] LABS: ACT PARTIAL THROMBO TIME 36.3 SECONDS (20.8-31.5); INTERNATIONAL NORM RATIO 1.2 (2.0-3.5)
[2017-02-02 08:00] VITALS: BP 130/64
[2017-02-02 08:01] LABS: ALBUMIN 2.4 gm/dl (3.1-4.5); ALKALINE PHOSPHATASE 70 U/L (45-117); BUN 12 mg/dl (7-24); CREATININE 0.57 mg/dL (0.70-1.30); SGOT/AST 7 IU/L (3-35); SGPT/ALT 11 U/L (12-78); TOTAL PROTEIN 6.3 gm/dL (6.4-8.2)
[2017-02-02 12:00] VITALS: BP 137/93
[2017-02-02 16:00] VITALS: BP 154/77
[2017-02-02 20:00] VITALS: BP 147/79
[2017-02-03] VITALS (13 sets, daily range): BP systolic 92–155; BP diastolic 53–89
[2017-02-03 06:38] LABS: BASO # 0.1 10*3/uL (0.0-0.1); BASO % 0.8 % (0.0-1.0); EOS # 0.5 10*3/uL (0.0-0.4); EOS % 4.1 % (1.0-4.0); HEMATOCRIT 27.8 % (42.0-52.0); HEMOGLOBIN 8.2 g/dl (14.0-18.0); LYMPH # 1.6 10*3/uL (1.3-4.4); LYMPH % 12.9 % (27.0-41.0); MEAN CELL VOLUME 85.8 fl (80.0-94.0); MEAN CORPUSCULAR HGB 25.3 pg (27.0-31.0); MEAN CORPUSCULAR HGB CONC 29.5 g/dl (33.0-37.0); MEAN PLATELET VOLUME 9.5 fl (9.6-12.3); MONO # 1.4 10*3/uL (0.1-1.0); MONO % 11.5 % (3.0-9.0); NEUT # 8.5 10*3/uL (2.3-7.9); NUCLEATED RED BLOOD CELL 0.2 % (0.0-0.0); PLATELET COUNT AUTOMATED 396 10*3/uL (130-400); RED BLOOD COUNT 3.24 10*6/uL (4.50-5.90); RED CELL DISTRI WIDTH 17.9 % (0-14.5); WHITE BLOOD COUNT 12.2 10*3/uL (4.8-10.8)
[2017-02-03 06:47] LABS: BUN 9 mg/dl (7-24); CHLORIDE 108 mmol/L (98-107); CREATININE 0.66 mg/dL (0.70-1.30); POTASSIUM 3.8 mmol/L (3.5-5.1); SODIUM 143 mmol/L (136-145)
[2017-02-03 07:02] LABS: VANCOMYCIN TROUGH 33.1 ug/mL (10-20)
[2017-02-04] VITALS (12 sets, daily range): BP systolic 90–112; BP diastolic 52–72
[2017-02-04 06:32] LABS: BASO # 0.1 10*3/uL (0.0-0.1); BASO % 0.6 % (0.0-1.0); EOS # 0.6 10*3/uL (0.0-0.4); EOS % 5.3 % (1.0-4.0); HEMATOCRIT 22.4 % (42.0-52.0); HEMOGLOBIN 6.5 g/dl (14.0-18.0); LYMPH # 1.4 10*3/uL (1.3-4.4); MEAN CELL VOLUME 85.5 fl (80.0-94.0); MEAN CORPUSCULAR HGB 24.8 pg (27.0-31.0); MONO # 1.1 10*3/uL (0.1-1.0); MONO % 10.5 % (3.0-9.0); NEUT # 7.4 10*3/uL (2.3-7.9); NEUT % 69.8 % (47.0-73.0); NUCLEATED RED BLOOD CELL 0.2 % (0.0-0.0); PLATELET COUNT AUTOMATED 321 10*3/uL (130-400); RED BLOOD COUNT 2.62 10*6/uL (4.50-5.90); RED CELL DISTRI WIDTH 17.9 % (0-14.5); WHITE BLOOD COUNT 10.5 10*3/uL (4.8-10.8)
[2017-02-04 06:50] LABS: ALKALINE PHOSPHATASE 57 U/L (45-117); BUN 11 mg/dl (7-24); CHLORIDE 110 mmol/L (98-107); POTASSIUM 3.6 mmol/L (3.5-5.1); SGOT/AST 14 IU/L (3-35); SGPT/ALT 12 U/L (12-78); SODIUM 142 mmol/L (136-145); TOTAL PROTEIN 5.8 gm/dL (6.4-8.2)
[2017-02-04 16:22] LABS: HEMOGLOBIN 8.9 g/dl (14.0-18.0); MEAN CELL VOLUME 83.6 fl (80.0-94.0); MEAN CORPUSCULAR HGB 25.6 pg (27.0-31.0); MEAN CORPUSCULAR HGB CONC 30.7 g/dl (33.0-37.0); MEAN PLATELET VOLUME 9.5 fl (9.6-12.3); NUCLEATED RED BLOOD CELL 0.1 % (0.0-0.0); PLATELET COUNT AUTOMATED 351 10*3/uL (130-400); RED BLOOD COUNT 3.47 10*6/uL (4.50-5.90); RED CELL DISTRI WIDTH 17.3 % (0-14.5); WHITE BLOOD COUNT 15.9 10*3/uL (4.8-10.8)
[2017-02-04 16:40] LABS: TOTAL CELLS COUNTED 100 #CELLS
[2017-02-04 16:41] LABS: BURR CELLS FEW; MICROCYTOSIS SLIGHT; PLATELET SUFFICIENCY NORMAL (NORMAL); POLYCHROMASIA SLIGHT
[2017-02-05] VITALS: BP 119/64
[2017-02-05 06:28] LABS: BASO # 0.1 10*3/uL (0.0-0.1); BASO % 0.6 % (0.0-1.0); EOS # 0.8 10*3/uL (0.0-0.4); EOS % 6.1 % (1.0-4.0); HEMOGLOBIN 8.2 g/dl (14.0-18.0); LYMPH # 1.3 10*3/uL (1.3-4.4); LYMPH % 10.5 % (27.0-41.0); MEAN CELL VOLUME 84.9 fl (80.0-94.0); MEAN CORPUSCULAR HGB 25.8 pg (27.0-31.0); MEAN CORPUSCULAR HGB CONC 30.4 g/dl (33.0-37.0); MEAN PLATELET VOLUME 9.2 fl (9.6-12.3); MONO # 1.2 10*3/uL (0.1-1.0); NEUT # 8.9 10*3/uL (2.3-7.9); NEUT % 72.1 % (47.0-73.0); PLATELET COUNT AUTOMATED 355 10*3/uL (130-400); RED BLOOD COUNT 3.18 10*6/uL (4.50-5.90); RED CELL DISTRI WIDTH 17.5 % (0-14.5); WHITE BLOOD COUNT 12.4 10*3/uL (4.8-10.8)
[2017-02-05 06:58] LABS: BUN 16 mg/dl (7-24); CHLORIDE 111 mmol/L (98-107); CREATININE 1.33 mg/dL (0.70-1.30); PHOSPHOROUS 4.5 mg/dL (2.5-4.9); POTASSIUM 3.6 mmol/L (3.5-5.1); SODIUM 145 mmol/L (136-145)
[2017-02-05 08:00] VITALS: BP 114/90
[2017-02-05 12:00] VITALS: BP 112/67
[2017-02-05 16:00] VITALS: BP 102/62
[2017-02-05 20:00] VITALS: BP 95/64
[2017-02-06] VITALS: BP 96/52
[2017-02-06 06:31] LABS: BASO # 0.1 10*3/uL (0.0-0.1); BASO % 0.6 % (0.0-1.0); EOS # 0.7 10*3/uL (0.0-0.4); EOS % 5.2 % (1.0-4.0); HEMATOCRIT 29.5 % (42.0-52.0); HEMOGLOBIN 8.8 g/dl (14.0-18.0); LYMPH # 1.5 10*3/uL (1.3-4.4); LYMPH % 11.6 % (27.0-41.0); MEAN CELL VOLUME 86.3 fl (80.0-94.0); MEAN CORPUSCULAR HGB 25.7 pg (27.0-31.0); MEAN CORPUSCULAR HGB CONC 29.8 g/dl (33.0-37.0); MEAN PLATELET VOLUME 9.6 fl (9.6-12.3); MONO # 1.3 10*3/uL (0.1-1.0); MONO % 10.4 % (3.0-9.0); NEUT # 8.9 10*3/uL (2.3-7.9); NEUT % 71.4 % (47.0-73.0); PLATELET COUNT AUTOMATED 388 10*3/uL (130-400); RED BLOOD COUNT 3.42 10*6/uL (4.50-5.90); RED CELL DISTRI WIDTH 17.5 % (0-14.5); WHITE BLOOD COUNT 12.5 10*3/uL (4.8-10.8)
[2017-02-06 07:10] LABS: POTASSIUM 3.6 mmol/L (3.5-5.1)
[2017-02-06 07:12] LABS: CREATININE 1.54 mg/dL (0.70-1.30); PHOSPHOROUS 5.5 mg/dL (2.5-4.9)
[2017-02-06 08:00] VITALS: BP 122/64
[2017-02-06 12:00] VITALS: BP 116/96
[2017-02-06 16:00] VITALS: BP 124/76
[2017-02-06 20:00] VITALS: BP 109/77
[2017-02-07] VITALS: BP 103/60
[2017-02-07 06:35] LABS: BASO # 0.1 10*3/uL (0.0-0.1); BASO % 0.8 % (0.0-1.0); EOS # 0.5 10*3/uL (0.0-0.4); EOS % 4.1 % (1.0-4.0); HEMATOCRIT 30.2 % (42.0-52.0); LYMPH # 1.5 10*3/uL (1.3-4.4); MEAN CELL VOLUME 84.8 fl (80.0-94.0); MEAN CORPUSCULAR HGB 25.3 pg (27.0-31.0); MEAN CORPUSCULAR HGB CONC 29.8 g/dl (33.0-37.0); MEAN PLATELET VOLUME 8.9 fl (9.6-12.3); MONO # 1.4 10*3/uL (0.1-1.0); MONO % 10.8 % (3.0-9.0); NEUT % 71.7 % (47.0-73.0); PLATELET COUNT AUTOMATED 357 10*3/uL (130-400); RED BLOOD COUNT 3.56 10*6/uL (4.50-5.90); RED CELL DISTRI WIDTH 17.2 % (0-14.5); WHITE BLOOD COUNT 12.5 10*3/uL (4.8-10.8)
[2017-02-07 06:46] LABS: CREATININE 1.57 mg/dL (0.70-1.30); PHOSPHOROUS 4.8 mg/dL (2.5-4.9); POTASSIUM 3.7 mmol/L (3.5-5.1)
[2017-02-07 08:00] VITALS: BP 123/71
[2017-02-07 12:00] VITALS: BP 152/80
[2017-02-07 16:00] VITALS: BP 128/71
[2017-02-07 20:00] VITALS: BP 125/59
[2017-02-08] VITALS: BP 108/56
[2017-02-08 08:00] VITALS: BP 114/61
[2017-02-08 12:00] VITALS: BP 120/57
[2017-02-08 16:00] VITALS: BP 119/60
[2017-02-08 20:00] VITALS: BP 136/69
[2017-02-09] VITALS: BP 114/60; BP 147/70
[2017-02-09 08:00] VITALS: BP 113/52
[2017-02-09 12:00] VITALS: BP 128/59
[2017-02-09 16:00] VITALS: BP 143/94
[2017-02-09 20:00] VITALS: BP 141/63
[2017-02-10] VITALS: BP 135/74
[2017-02-10 06:25] LABS: BASO # 0.1 10*3/uL (0.0-0.1); BASO % 0.7 % (0.0-1.0); EOS # 0.6 10*3/uL (0.0-0.4); HEMATOCRIT 29.1 % (42.0-52.0); HEMOGLOBIN 8.6 g/dl (14.0-18.0); LYMPH # 1.9 10*3/uL (1.3-4.4); LYMPH % 15.3 % (27.0-41.0); MEAN CELL VOLUME 84.3 fl (80.0-94.0); MEAN CORPUSCULAR HGB 24.9 pg (27.0-31.0); MEAN CORPUSCULAR HGB CONC 29.6 g/dl (33.0-37.0); MEAN PLATELET VOLUME 9.4 fl (9.6-12.3); MONO # 1.3 10*3/uL (0.1-1.0); NEUT # 8.2 10*3/uL (2.3-7.9); NEUT % 67.3 % (47.0-73.0); PLATELET COUNT AUTOMATED 360 10*3/uL (130-400); RED BLOOD COUNT 3.45 10*6/uL (4.50-5.90); RED CELL DISTRI WIDTH 17.6 % (0-14.5); WHITE BLOOD COUNT 12.1 10*3/uL (4.8-10.8)
[2017-02-10 06:48] LABS: BUN 24 mg/dl (7-24); CREATININE 1.18 mg/dL (0.70-1.30)
[2017-02-10 08:00] VITALS: BP 106/78
[2017-02-10 12:00] VITALS: BP 112/72
[2017-02-10] MEDS ORDERED: NEURONTIN300 MG PO (15:36)
[2017-02-10] MEDS ORDERED: CEFTRIAXON2 GM/50 ML IV (15:36)
[2017-02-10] MEDS ORDERED: VICODIN ES 7.51 EACH PO (15:36)
[2017-02-10] MEDS ORDERED: METOPROLOL TART50 M1 PO (15:36)
[2017-02-10 16:00] VITALS: BP 126/82
== END 2017-02-10 17:25 | disposition other institution (70) | DRG 853 ==
LOC: ED 18:07 → 4E 20:14 → EDHOLD 20:14 → 4E 20:30
PROVIDERS: Family Medicine; Internal Medicine; Internal Medicine Nephrology; Student in an Organized Health Care Education/Training Program
PROC: 0JB70ZZ Excision of Back Subcutaneous Tissue and Fascia, Open Approach (ICD-10-PCS; principal; 2017-02-03)
PROC: 30233N1 Transfusion of Nonautologous Red Blood Cells into Peripheral Vein, Percutaneous Approach (ICD-10-PCS; 2017-02-04)
DX: A41.9 Sepsis, unspecified organism (principal); I50.33 Acute on chronic diastolic (congestive) heart failure; E43 Unspecified severe protein-calorie malnutrition; L89.150 Pressure ulcer of sacral region, unstageable; N17.9 Acute kidney failure, unspecified; N39.0 Urinary tract infection, site not specified; M86.9 Osteomyelitis, unspecified; L98.499 Non-pressure chronic ulcer of skin of other sites with unspecified severity; E87.6 Hypokalemia; D72.829 Elevated white blood cell count, unspecified; D64.9 Anemia, unspecified; D47.3 Essential (hemorrhagic) thrombocythemia; G35 Multiple sclerosis; E55.9 Vitamin D deficiency, unspecified; B96.4 Proteus (mirabilis) (morganii) as the cause of diseases classified elsewhere; A49.8 Other bacterial infections of unspecified site; M81.0 Age-related osteoporosis without current pathological fracture; L08.9 Local infection of the skin and subcutaneous tissue, unspecified; I25.10 Atherosclerotic heart disease of native coronary artery without angina pectoris; G25.81 Restless legs syndrome; E78.5 Hyperlipidemia, unspecified; F32.9 Major depressive disorder, single episode, unspecified; I11.0 Hypertensive heart disease with heart failure; K59.00 Constipation, unspecified; R45.1 Restlessness and agitation; Z93.59 Other cystostomy status; T83.510D Infection and inflammatory reaction due to cystostomy catheter, subsequent encounter; Z95.1 Presence of aortocoronary bypass graft; Z82.49 Family history of ischemic heart disease and other diseases of the circulatory system; Z81.8 Family history of other mental and behavioral disorders; Z88.2 Allergy status to sulfonamides; Z88.8 Allergy status to other drugs, medicaments and biological substances; Z91.041 Radiographic dye allergy status; Z91.040 Latex allergy status; Z79.899 Other long term (current) drug therapy; Z79.82 Long term (current) use of aspirin; Z68.21 Body mass index [BMI] 21.0-21.9, adult

== ENCOUNTER 2017-03-09 11:25 | Emergency (ER) | payer OTHER, MEDICAID ==
[2017-03-09] VITALS (7 sets, daily range): BP systolic 113–145; BP diastolic 56–80
[~2017-03-09] VITALS: Ht 193 cm; Wt 74.8 kg
[~2017-03-09 11:25] MED LIST changes: +CEFTRIAXON2 GM/50 ML IV; +METOPROLOL TART50 M1 PO
[2017-03-09 12:20] LABS: BASO # 0.1 10*3/uL (0.0-0.1); BASO % 0.4 % (0.0-1.0); EOS # 0.2 10*3/uL (0.0-0.4); EOS % 1.6 % (1.0-4.0); HEMATOCRIT 23.5 % (42.0-52.0); HEMOGLOBIN 6.8 g/dl (14.0-18.0); LYMPH # 1.6 10*3/uL (1.3-4.4); LYMPH % 11.4 % (27.0-41.0); MEAN CELL VOLUME 87.7 fl (80.0-94.0); MEAN CORPUSCULAR HGB 25.4 pg (27.0-31.0); MEAN CORPUSCULAR HGB CONC 28.9 g/dl (33.0-37.0); MEAN PLATELET VOLUME 10.7 fl (9.6-12.3); MONO # 1.3 10*3/uL (0.1-1.0); MONO % 9.7 % (3.0-9.0); NEUT # 10.5 10*3/uL (2.3-7.9); NEUT % 76.2 % (47.0-73.0); PLATELET COUNT AUTOMATED 255 10*3/uL (130-400); RED BLOOD COUNT 2.68 10*6/uL (4.50-5.90); RED CELL DISTRI WIDTH 18.6 % (0-14.5); WHITE BLOOD COUNT 13.8 10*3/uL (4.8-10.8)
[2017-03-09 12:27] LABS: BILIRUBIN NEGATIVE (NEGATIVE); BLOOD 3+ (NEGATIVE); CLARITY TURBID (CLEAR); COLOR RED (YELLOW); GLUCOSE TRACE (NEGATIVE); KETONE NEGATIVE (NEGATIVE); LEUKO ESTERASE 2+ (NEGATIVE); NITRITE NEGATIVE (NEGATIVE); SPECIFIC GRAVITY 1.025 (1.005-1.030); UROBILINOGEN 0.2 E.U./dl (0.2-1.0)
[2017-03-09 12:29] LABS: INTERNATIONAL NORM RATIO 1.2 (2.0-3.5)
[2017-03-09 12:36] LABS: RBC TNTC rbc/hpf (0-2)
[2017-03-09 12:37] LABS: ALBUMIN 1.8 gm/dl (3.1-4.5); ALKALINE PHOSPHATASE 77 U/L (45-117); BUN 17 mg/dl (7-24); CHLORIDE 114 mmol/L (98-107); POTASSIUM 4.1 mmol/L (3.5-5.1); SGOT/AST 13 IU/L (3-35); SGPT/ALT 12 U/L (12-78); SODIUM 146 mmol/L (136-145); TOTAL PROTEIN 5.8 gm/dL (6.4-8.2)
[2017-03-09] MEDS ORDERED: VANCOMYCIN750 MG/151 IV (12:37)
[2017-03-09 12:38] LABS: WBC TNTC wbc/hpf (0-5)
[2017-03-09] MEDS ORDERED: DUONEB 3 MG/3 ML3 M1 INH (12:38)
[2017-03-09] MEDS ORDERED: MIRTAZAPINE15 M2 PO (12:38)
[2017-03-09] MEDS ORDERED: CARTIA XT240 MG PO (12:40)
[2017-03-09] MEDS ORDERED: ASPIRIN81 M1 PO (12:41)
[2017-03-09 12:42] LABS: BACTERIA 3+; YEAST 1+
[2017-03-09] MEDS ORDERED: FLAVOXATE HCL100 MG PO (12:42)
[2017-03-09 12:43] LABS: TROPONIN I 0.985 ng/ml (<0.045)
[2017-03-09] MEDS ORDERED: CHILDREN'S1000 UNIT PO (12:43)
[2017-03-09] MEDS ORDERED: VITAMIN E400 UNI3 PO (12:45)
[2017-03-09] MEDS ORDERED: METOPROLOL SUCC50 M1 PO (12:46)
[2017-03-09] MEDS ORDERED: DOXAZOSIN MESYLA1 MG PO (12:46)
[2017-03-09] MEDS ORDERED: NEURONTIN300 MG PO (12:47)
[2017-03-09] MEDS ORDERED: CEFTRIAXONE2 GM IV (12:47)
[2017-03-09] MEDS ORDERED: VICO75300 PO (12:48)
[2017-03-09] MEDS ORDERED: TECFIDERA PO (12:49)
[2017-03-09] MEDS ORDERED: GLYCOLAX119 GM PO (12:50)
[2017-03-09] MEDS ORDERED: HIPREX1 GM PO (12:51)
[2017-03-09] MEDS ORDERED: CRANBERRY300 MG PO (12:51)
== END 2017-03-09 20:32 | disposition short-term general hospital (02) ==
LOC: ED 11:25 → EDHOLD 13:11 → ED 13:11 → EDHOLD 14:15 → ICCU 14:15 → ED 20:32
PROVIDERS: Emergency Medicine
DX: A41.9 Sepsis, unspecified organism (principal); D64.9 Anemia, unspecified; I11.0 Hypertensive heart disease with heart failure; I50.9 Heart failure, unspecified; R79.89 Other specified abnormal findings of blood chemistry; R31.0 Gross hematuria; E87.0 Hyperosmolality and hypernatremia; J90 Pleural effusion, not elsewhere classified; J18.9 Pneumonia, unspecified organism; N39.0 Urinary tract infection, site not specified; G25.81 Restless legs syndrome; I25.10 Atherosclerotic heart disease of native coronary artery without angina pectoris; G35 Multiple sclerosis; E78.5 Hyperlipidemia, unspecified; Z98.890 Other specified postprocedural states; Z95.1 Presence of aortocoronary bypass graft; Z79.82 Long term (current) use of aspirin; Z79.899 Other long term (current) drug therapy; Z91.041 Radiographic dye allergy status; Z87.891 Personal history of nicotine dependence; Z88.2 Allergy status to sulfonamides; Z91.040 Latex allergy status; Z88.6 Allergy status to analgesic agent; Z88.5 Allergy status to narcotic agent